=== PATIENT | female | born 1960 ===

== ENCOUNTER 2017-02-13 09:00 | Outpatient (CLI) | payer BC ==
--- NOTE | 2017-02-13 12:02 | Mammography Report ---
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 COMPARISON:None available. FINDINGS: The breasts are heterogeneously dense, which may obscure small masses.The left breast is smaller than the right. No postsurgical scar. No mass, architectural distortion or suspicious calcifications. IMPRESSION: No mammographic evidence of malignancy. BI-RADS CATEGORY: 2 - - Benign RECOMMENDATION: Routine mammographic screening in one year. COMMENT: We will obtain a prior mammogram from [facility] and make an addendum to this report after making comparison. Patient follow-up letters are generated by our [employer] application.
== END 2017-02-13 09:01 | disposition home or self-care (01) ==
LOC: SPVWC 09:00
PROVIDERS: ATTEND Family Medicine
DX: Z12.31 Encounter for screening mammogram for malignant neoplasm of breast (principal)
CPT/HCPCS: 77067; G0202